=== PATIENT | male | born 1960 | race African-American/Black ===

== ENCOUNTER 2017-11-16 05:43 | Day surgery (SDC) | payer MEDICARE, OTHER ==
[2017-11-12 11:10] LABS: BASOPHILS % (AUTO) 1.5 % (0.0-2.0); EOSINOPHILS % (AUTO) 0.7 % (0.0-3.0); HEMATOCRIT 44.8 % (42.0-52.0); HEMOGLOBIN 13.9 G/DL (14.2-18.0); LYMPHOCYTES % (AUTO) 36.3 % (20.0-45.0); MEAN CORPUSCULAR VOLUME 74 FL (80-99); MONOCYTES % (AUTO) 10.1 % (1.0-10.0); NEUTROPHILS % (AUTO) 51.3 % (45.0-75.0); PLATELET COUNT 302 K/UL (150-450); RED BLOOD COUNT 6.06 M/UL (4.70-6.10); RED CELL DISTRIBUTION WIDTH 12.6 % (11.6-14.8); WHITE BLOOD COUNT 5.1 K/UL (4.8-10.8)
[2017-11-12 11:25] LABS: ANION GAP 9 mmol/L (5-15); BLOOD UREA NITROGEN 14 mg/dL (7-18); CALCIUM 9.4 MG/DL (8.5-10.1); CARBON DIOXIDE 26 MMOL/L (21-32); CHLORIDE 106 MMOL/L (98-107); CREATININE 0.9 MG/DL (0.55-1.30); POTASSIUM 3.9 MMOL/L (3.5-5.1); SODIUM 141 MMOL/L (136-145)
--- NOTE | 2017-11-13 | Pre-op HX & Phy Repo 2 SIG ---
DATE OF ADMISSION: 11/16/2017 PRESURGICAL INTERNAL MEDICINE HISTORY AND PHYSICAL DATE OF EVALUATION: 11/12/2017 REASON FOR EVALUATION: I was asked by Dr. Keyon Mosqueda to see this 57-year-old male who going for elective surgery on the right eye. This is internal Medicine History and Physical, presurgical. The patient was evaluated. Chart was reviewed. The patient was seen in the outpatient department of [facility]. PAST MEDICAL HISTORY/REVIEW OF SYSTEMS: Remarkable for history of hypertension, degenerative joint disease and back pain, history of irritable bowel syndrome. Denies history of chest pain, palpitation, or heart attack. No history of stroke or seizures. Denies history of respiratory problem. No asthma or bronchitis. No COPD. Denies history of ulcer disease or GI bleeding. No history of anemia or renal insufficiency. No thyroid problem. PAST SURGICAL HISTORY: Lumbar spine disk in 2000. MEDICATIONS: Current medications include amlodipine 10 mg daily, glucosamine 1000 mg daily, ALLERGIES: Morphine sulfate, develops rashes and lethargy. HABITS: The patient smoked for one year approximately 25 years ago. Alcohol, beer. The patient smokes marijuana. FAMILY HISTORY: Mother from complication of stroke and heart problem. Father unknown. PHYSICAL EXAMINATION: GENERAL: The patient is alert, well-developed and well-nourished male in his 50s, no acute distress. VITAL SIGNS: Pending. SKIN: Dry. No diaphoresis. No ulcer, open wounds, or rashes. LYMPHATICS: Lymph nodes not enlarged. HEENT: Head, normocephalic. Ears, clear. Eyes, full description per Dr. Keyon mosqueda. Mouth clear and moist. No dentures. NECK: Supple. No jugular vein distention. Carotids artery +2. Trachea midline. CHEST: No deformity or asymmetry. LUNGS: Clear. No rales or rhonchi. HEART: Sinus. Regular. No ectopy. No murmur. No S3 or S4. ABDOMEN: Soft, benign. Liver and spleen not enlarged. No palpable mass. No rebound. EXTREMITIES: No edema. No calf tenderness. GENITOURINARY: Normal for gender. No dysuria. No CVA tenderness. NERVOUS SYSTEM: No nystagmus. No tremor. LABORATORY AND DIAGNOSTIC DATA: Electrocardiogram, normal sinus rhythm, 74 per minute, normal ECG. Laboratory done today, white blood cells 5.1, hemoglobin 13.9, and hematocrit 44.9. Chemistry, blood sugar 101. Calcium 9.4, sodium 141, potassium 3.5, BUN 14, and creatinine 0.5. GFR more than 60 IMPRESSION: 1. Cataract, right eye. 2. Hypertension, controlled. 3. Irritable bowel syndrome. 4. Lumbar spine disk disease. PLAN: Cataract extraction, right eye with intraocular lens implant per Dr. Keyon Mosqueda. CONCLUSION: The patient has a history of hypertension and IBS, also lumbar spine degenerative joint disease and surgery on lumbar spine. The patient's laboratory in normal limits. Normal ECG. The patient is recommended to come to [facility] and not to eat or drink from midnight 11/16/2017. The patient's condition optimized for surgery. Thank you very much, Dr. Mosqueda, for privilege to participate presurgical care in this patient. Maegan Martinez M.D. DR: EDDIE JOB#: [id number] CC:
--- NOTE | 2017-11-13 10:41 | Pre-Procedure Note/Attestation ---
Pre-Procedure Note/Attestation Complete Prior to Procedure Planned Procedure: right Procedure Narrative: phaco que iol Indications for Procedure Pre-Operative Diagnosis: cataract Attestation I attest that I discussed the nature of the procedure; its benefits; risks and complications; and alternatives (and the risks and benefits of such alternatives ), prior to the procedure, with the patient (or the patient's legal healthcare sales representative). I attest that, if there was a reasonable possibility of needing a blood transfusion, the patient (or the patient's legal healthcare sales representative) was given the [facility] standardized written summary, pursuant to the Saji Cheriton Blood Safety Act ([place] Health and Safety Code # 1645, as amended). I attest that I re-evaluated the patient just prior to the surgery and that there has been no change in the patient's H&P, except as documented below: ARTIE PRYOR Nov 13, 2017 10:41
--- NOTE | 2017-11-13 10:43 | Opthalmology H&P ---
Ophthalmology H&P H&P Chief Complaint: decreased vision in right eye HPI Vision Affects Ability to: read, focus/use eyes together, manage personal affairs HPI Narrative blurry vision Exam Visual Acuity: OD: 20/50 OS: 20/25 Tension: OD: 20 OS: 20 Eye Exam: normal OU: external exam, palpebral fissure-width, marginal reflex distance, levator function, corneas, anterior chambers, findings: lens - OD: psc OS: ns, fundus exam - increased cd Assessment/Plan Diagnosis: (1) Posterior subcapsular cataract, right Treatment Plan: cataract extraction w/ lens implant Goals of Treatment: improvement of vision, enhance quality of life Attestation Attestation The risks and benefits of the surgery as well as alternative procedures were explained to the patient in detail. ARTIE PRYOR Nov 13, 2017 10:43
[~2017-11-16] VITALS: Ht 180.3 cm; Wt 80.3 kg
[2017-11-16] VITALS (7 sets, daily range): BP systolic 122–139; BP diastolic 84–91
[~2017-11-16 05:43] MED LIST: AMLODIPINE BESY10 MG ORAL; GLUCOSAMINE1000 M1 PO
[2017-11-16] MEDS ORDERED: Phenylephrine 10% Opth Soln 5ml ONE (06:06)
[2017-11-16] MEDS ORDERED: Akten 3.5% 1ml Btl ONE (06:06)
[2017-11-16] MEDS ORDERED: Tobramycin Op Soln 0.3% 5ml ONE (06:06)
[2017-11-16] MEDS ORDERED: Cyclopentolate 1% Opth Sol 2ml ONE (06:06)
[2017-11-16] MEDS ORDERED: Ketorolac Tromethamine Opth 5ml Soln ONE (06:06)
[2017-11-16] MEDS ORDERED: Tetracaine 0.5% Opth 4ml Soln ONE (06:07)
[2017-11-16] MEDS ORDERED: Tropicamide 1% Opth 15ml Soln ONE (06:07)
[2017-11-16] MEDS: Ketorolac Tromethamine Opth 5ml Soln RIGHT EYE SCH ×3 (06:14→06:42)
[2017-11-16] MEDS: Tropicamide 1% Opth 15ml Soln RIGHT EYE SCH ×3 (06:14→06:42)
[2017-11-16] MEDS: Phenylephrine 10% Opth Soln 5ml RIGHT EYE SCH ×3 (06:14→06:41)
[2017-11-16] MEDS: Cyclopentolate 1% Opth Sol 2ml RIGHT EYE SCH ×3 (06:14→06:41)
[2017-11-16] MEDS: Tobramycin Op Soln 0.3% 5ml RIGHT EYE SCH ×2 (06:15→06:42)
[2017-11-16] MEDS ORDERED: Maxitrol Opth Oint 3.5gm ONE (07:00)
[2017-11-16] MEDS ORDERED: Sterile Water 10ml Vial ONE (07:00)
[2017-11-16] MEDS ORDERED: Proparacaine 0.5% Opth Soln 15ml RIGHT EYE ONE (07:00)
[2017-11-16] MEDS ORDERED: Pred Forte 1% Opth Susp 1ml ONE (07:00)
[2017-11-16] MEDS ORDERED: BSS 500ml btl ONE (07:00)
[2017-11-16] MEDS ORDERED: Dexamethasone 4mg/ml vial ONE (07:00)
[2017-11-16] MEDS ORDERED: EPINEPHrine 1mg/1ml Amp ONE ×2 (07:00→07:03)
[2017-11-16] MEDS ORDERED: Tetracaine 0.5% Opth 4ml Soln RIGHT EYE ONE (07:00)
[2017-11-16] MEDS ORDERED: Akten 3.5% 1ml Btl RIGHT EYE ONE (07:00)
[2017-11-16] MEDS ORDERED: acetaZOLAMIDE 500mg Inj ONE (07:02)
[2017-11-16] MEDS ORDERED: Lidocaine 2% MPF 5ml Vial INJ ONE (07:03)
[2017-11-16] MEDS ORDERED: DiphenhydrAMINE 50mg/ml Inj ONE (07:03)
[2017-11-16] MEDS ORDERED: BSS 15ml BTL ONE (07:03)
[2017-11-16] MEDS ORDERED: Sodium Hyaluronate 14 mg/ml 0.85ml ONE (07:04)
[2017-11-16] MEDS ORDERED: Povidone-Iodine 5% opth solution ONE (07:04)
[2017-11-16] MEDS ORDERED: Pilocarpine 2% Opth 15ml Soln ONE (07:04)
[2017-11-16] MEDS ORDERED: Carbachol 0.01% Op Soln 1.5ml vial ONE (07:05)
[2017-11-16] MEDS ORDERED: LR 1000ml 1,000 ML IVLG SCH (07:20)
--- NOTE | 2017-11-16 07:20 | Anethesia Preoperative Eval ---
Anesthesia Pre-op PMH/ROS General Date of Evaluation: Nov 16, 2017 Anesthesiologist: Dimas ASA Score: ASA 2 Mallampati Score Class I : Soft palate, uvula, fauces, pillars visible Class II: Soft palate, uvula, fauces visible Class III: Soft palate, base of uvula visible Class IV: Only hard plate visible Mallampati Classification: Class II Surgeon: Ariella Diagnosis: Right cataract Surgical Procedure: Right cataract extraction with IOL Anesthesia History: none Family History: no anesthesia problems Allergies: Coded Allergies: MORPHINE (Verified Allergy, Severe, 11/12/17) LETHARGIC, ITCHING Medications: see eMAR Past Medical History Cardiovascular: Reports: HTN, Denies: CAD, CO, valve dz, arrhythmia, other Pulmonary: Denies: asthma, COPD, DOMENIC, other Gastrointestinal/Genitourinary: Reports: other - IBS, Denies: GERD, CRI, ESRD Neurologic/Psychiatric: Denies: dementia, CVA, depression/anxiety, TIA, other Endocrine: Denies: DM, hypothyroidism, steroids, other HEENT: Denies: cataract (L), cataract (R), glaucoma, [place]G (L), CUR[place]UNG (R), other Hematology/Immune: Denies: anemia, DVT, bleeding disorder, other Musculoskeletal/Integumentary: Reports: OA, Denies: RA, DJD, DDD, edema, other PSxH Narrative: lumbar sx Anesthesia Pre-op Phys. Exam Physician Exam Last Vital Signs Date Time Temp Pulse Resp B/P (MAP) Pulse Ox O2 Delivery O2 Flow Rate FiO2 11/16/17 06:22 98.5 70 18 122/84 97 Room Air 98.5 Constitutional: NAD Cardiovascular: RRR Respiratory: CTA Airway Exam Mallampati Score: Class II MO: full ROM: full Anesthesia Pre-op A/P Labs see chart Studies Pre-op Studies: EKG - sr Risk Assessment & Plan Assessment: ASA II Plan: MAC Status Change Before Surgery: No Pre-Antibiotics Drug: N/A INDERJIT CARL M.D. Nov 16, 2017 07:20
--- NOTE | 2017-11-16 07:21 | 48 Hour Post Anesthesia Eval ---
Post Anesthesia Evaluation Procedure: Right cataract exaction with IOL Date of Evaluation: Nov 16, 2017 Airway: patent Nausea: No Vomiting: No Pain Intensity: 0 Hydration Status: adequate Cardiopulmonary Status: at baseline Mental Status/LOC: patient returned to baseline Post-Anesthesia Complications: 0 Follow-up care needed: ready to discharge INDERJIT CARL M.D. Nov 16, 2017 07:21
--- NOTE | 2017-11-16 07:21 | Immediate Post-Op Evaluation ---
Immediate Post-Op Evalulation Immediate Post-Op Evalulation Procedure: Right cataract exaction with IOL Date of Evaluation: Nov 16, 2017 Time of Evaluation: 08:36 IV Fluids: 400 Blood Products: 0 Estimated Blood Loss: 0 Urinary Output: 0 Blood Pressure Systolic: 139 Blood Pressure Diastolic: 91 Pulse Rate: 70 Respiratory Rate: 16 O2 Sat by Pulse Oximetry: 100 Temperature (Fahrenheit): 98.7 Pain Score (1-10): 0 Nausea: No Vomiting: No Complications 0 Patient Status: awake, reacts, patent, none Hydration Status: adequate Drug: N/A INDERJIT CARL M.D. Nov 16, 2017 07:21
[2017-11-16] MEDS ORDERED: DiphenhydrAMINE 50mg/ml Inj IVP PRN (07:30)
[2017-11-16] MEDS ORDERED: fentaNYL 100 mcg/2 mL IV ONE (08:00)
[2017-11-16] MEDS ORDERED: Midazolam 2mg/2ml Inj ONE (08:00)
[2017-11-16] MEDS ORDERED: Sterile Water Irrig 1000ml IRRIG ONE (08:00)
[2017-11-16] MEDS ORDERED: LR 1000ml ONE (08:00)
[2017-11-16] MEDS ORDERED: Lidocaine 1% MPF 10mg/ml 5ml ONE (08:00)
[2017-11-16] MEDS ORDERED: NS Irrig 1000ml ONE (08:00)
--- NOTE | 2017-11-17 09:09 | Brief Operative Note ---
Immediate Post Operative Note Operative Note Chief Complaint: Blurry Vision Pre-op Diagnosis: Cataract Right Eye Procedure: Phaco With IOL Implant Right Eye Post-op Diagnosis: Pseudophakia Right Eye Post-op Diagnosis: same as pre-op Findings: consistent w/pre-op dx studies Surgeon: Artie Pryor Anesthesiologist: Kg Anesthesia: MAC Specimen: none Complications: none Condition: stable Fluids: LR Estimated Blood Loss: none Drains: none Implant(s) used?: Yes ARTIE PRYOR Nov 17, 2017 09:09
--- NOTE | 2017-11-17 09:36 | Operative Note - PDOC ---
Operative Note Operative Note Date of Operation/Procedure: Nov 16, 2017 Chief Complaint: Blurry Vision Pre-op Diagnosis: Cataract Right Eye Procedure: Phaco With IOL Implant Right Eye Post-op Diagnosis: Pseudophakia Right Eye Post-op Diagnosis: same as pre-op Operative Findings: consistent w/pre-op dx studies Surgeon: Artie Pryor Anesthesiologist: Kg Anesthesia: MAC Specimen: none Complications: none Condition: stable Fluids: LR Estimated Blood Loss: none Drains: none Implant(s) used?: Yes Indications for Procedure cataract Description of Procedure PATIENT: ATT. PHYS: ARTIE PRYOR M.D. SURGEON: ARTIE PRYOR M.D. ADMIT DATE: REPORT OF OPERATION Page 2 of 2 This patient has been complaining visually significant cataract in the affected eye with the best corrected visual acuity under moderate glare conditions worse. The patient complains of difficulties with glare in performing activities of daily living and wants to manage personal affairs with comfort and accuracy and see well enough to move with safety at home and outdoors. The risks, benefits and alternatives of the procedure were discussed with the patient in the office prior to scheduling surgery. All questions from the patient were answered after the surgical procedure was explained in detail. The risks of the procedure as explained to the patient include, but are not limited to, pain, infection, bleeding, loss of vision, retinal detachment, need for further surgery, loss of lens nucleus, double vision, etc. Alternative procedures were discussed which include, to do nothing or seek a second opinion. Informed consent for this procedure was obtained from the patient. The patient was referred to a primary care physician for a cardiopulmonary clearance prior to surgery, after proper evaluation was done patient was properly scheduled for outpatient surgery. The patient was brought to the operating room where the anesthesiologist established I.V. lines and cardiac monitoring leads. Mild intravenous sedation was administered. The patient was then prepared with a 5% solution of povidone -iodine to the conjunctival fornix and lashes, and a 5% solution of povidone- iodine to the lids and periorbital skin. The patient was then draped in the usual sterile fashion. A lid speculum was then placed in the operative eye. A keratome blade was then used to create a biplanar incision into the anterior chamber. Viscoelastics was then instilled into the anterior chamber. A capsulorrhexis was then fashioned with an utrata forceps followed by a BSS and a cannula were then used to hydrodissect and hydro delineate the lens. Paracentesis incision was made at 3 o'clock with sharp blade. The phacoemulsification unit, after being properly adjusted and tested, was then used to emulsify the nucleus then aspiration and irrigation of residual cortical material with the I and A unit. Healon was then instilled into the anterior chamber. The corneal wound was then enlarged to the size of the optic with the anuel keratome blade. The intraocular lens was then inspected for right power and size and thought to be satisfactory. Then the lens was gently placed in the capsular bag. Positioning within the capsular bag was confirmed by direct visualization. Optic centration was accomplished with a Sinskey hook. Viscoelastics was removed from the anterior chamber using the irrigation and aspiration unit. The corneal wound was then tested for leaks and none were found. The lid speculum were then removed. Sponge and needle counts were correct. An eye patch and shield were placed over the operative eye. The patient was taken to the recovery room in stable condition. There were no complications. The patient tolerated the procedure well. The patient was then transferred to the ambulatory surgery unit in stable and satisfactory condition , was given detailed written instructions and asked to follow up in the office the next day. ARTIE PRYOR M.D. ARTIE PRYOR Nov 17, 2017 09:35
--- NOTE | 2017-11-25 17:02 | Cardiology Report ---
APPROVED REPORT EKG Measurement Heart [id number] Normal sinus rhythm Normal ECG
== END 2017-11-16 10:10 | disposition home or self-care (01) ==
LOC: SUR 05:43
DX: H25.041 Posterior subcapsular polar age-related cataract, right eye (principal); I10 Essential (primary) hypertension; K58.9 Irritable bowel syndrome, unspecified; M51.36 Other intervertebral disc degeneration, lumbar region; Z88.6 Allergy status to analgesic agent; Z88.2 Allergy status to sulfonamides; F12.90 Cannabis use, unspecified, uncomplicated; M19.90 Unspecified osteoarthritis, unspecified site
CPT/HCPCS: 36415; 66984; 80048; 85025; 93005; J0171; J1100; J1200; J2250; J3010; J3370; J7120; V2632; 94003; 94150; A4216

== ENCOUNTER 2018-05-31 05:52 | Day surgery (SDC) | payer MEDICARE, OTHER ==
[2018-05-25 09:44] LABS: BASOPHILS % (AUTO) 1.4 % (0.0-2.0); HEMOGLOBIN 14.9 G/DL (14.2-18.0); MEAN CORPUSCULAR VOLUME 73 FL (80-99); MONOCYTES % (AUTO) 10.5 % (1.0-10.0); NEUTROPHILS % (AUTO) 44.1 % (45.0-75.0); PLATELET COUNT 342 K/UL (150-450); RED BLOOD COUNT 6.67 M/UL (4.70-6.10); RED CELL DISTRIBUTION WIDTH 12.5 % (11.6-14.8); WHITE BLOOD COUNT 5.6 K/UL (4.8-10.8)
[2018-05-25 09:47] LABS: ANION GAP 7 mmol/L (5-15); BLOOD UREA NITROGEN 12 mg/dL (7-18); CALCIUM 9.7 MG/DL (8.5-10.1); CARBON DIOXIDE 32 MMOL/L (21-32); CHLORIDE 103 MMOL/L (98-107); CREATININE 0.9 MG/DL (0.55-1.30); SODIUM 142 MMOL/L (136-145)
[2018-05-25 09:57] LABS: INR 0.9 (0.9-1.1)
--- NOTE | 2018-05-25 16:00 | Pre-op HX & Phy Repo 2 SIG ---
DATE OF ADMISSION: 05/31/2018 PRESURGICAL INTERNAL MEDICINE HISTORY AND PHYSICAL DATE OF EVALUATION: 05/25/2018. REASON FOR EVALUATION: I was asked by Dr. Keyon Krishnan to see this 58-year-old male, who going for elective surgery on the left eye on the May 31, 2018. The patient was evaluated. Chart was reviewed. The patient has a cataract, left eye. Please see history and physical by Ophthalmology, Dr. Keyon Krishnan. This is second visit to [facility]. The patient had a right eye cataract removal on November 16, 2017. Chart was reviewed. PAST MEDICAL HISTORY: Remarkable for hypertension, low back pain due to lumbar spine degenerative disease, irritable bowel syndrome. The patient denies history of chest pain, palpitation, or heart attack. No history of diabetes. No respiratory problem, asthma, or bronchitis. Denies history of ulcer disease, thyroid problem, or renal failure. No anemia. PAST SURGICAL HISTORY: Right eye cataract surgery. FAMILY HISTORY: Mother from complication of the stroke, she had a heart problem. Father, unknown. ALLERGIES: The patient is allergic to morphine. PRESENT MEDICATIONS: Include amlodipine and glucosamine, also Naprosyn for pain. HABITS: The patient's tobacco use for one year, 25 years ago. Alcohol, beer. Street drug, marijuana occasional. PHYSICAL EXAMINATION: GENERAL: Alert, well-developed, well-nourished male in his 50s, no acute distress. VITAL SIGNS: Blood pressure 140/89, temperature 97, pulse 70, respirations 18, and O2 saturation 99% on room air. SKIN: No ulcer. No rashes. Warm and dry. Lymph nodes not enlarged. HEENT: Head, normocephalic. Ears, clear. Eyes, full description per Dr. Keyon Krishnan. Mouth, clear and moist. No dentures. NECK: No jugular venous distention. Carotids artery +2. Trachea midline. CHEST: No deformity or asymmetry. LUNGS: Clear. No rales or rhonchi. HEART: Sinus rhythm. No ectopy. No S3 or S4. ABDOMEN: Soft. No palpable mass. No rebound. EXTREMITIES: No edema. No calf tenderness. No varicose vein. GENITOURINARY TRACT: Normal for gender. NERVOUS SYSTEM: No tremor. No nystagmus. LABORATORY AND DIAGNOSTIC DATA: ECG done today, normal sinus rhythm at 67 per minute, normal ECG. Lab work is all pending. IMPRESSION: 1. Cataract, left eye. 2. Hypertension. 3. Irritable bowel syndrome. 4. Low back pain due to lumbar spine degenerative joint disease. PLAN: Cataract extraction, left eye with intraocular lens implant per Dr. Keyon Krishnan. CONCLUSION: The patient is a 58-year-old male. Vital signs stable. The patient had EKG normal. The patient to be NPO after midnight May 31, 2018, for surgery. The patient's condition optimized for surgery. Thank you very much, Dr. Krishnan, for the privilege to participate in the presurgical care of this interesting patient. Maegan Martinez M.D. DR: SHIKHA JOB#: [id number] CC:
--- NOTE | 2018-05-26 15:59 | Pre-Procedure Note/Attestation ---
Pre-Procedure Note/Attestation Complete Prior to Procedure Planned Procedure: left Procedure Narrative: phaco with IOL Indications for Procedure Pre-Operative Diagnosis: cataract Attestation I attest that I discussed the nature of the procedure; its benefits; risks and complications; and alternatives (and the risks and benefits of such alternatives ), prior to the procedure, with the patient (or the patient's legal service representative). I attest that, if there was a reasonable possibility of needing a blood transfusion, the patient (or the patient's legal service representative) was given the [facility] standardized written summary, pursuant to the [address] Blood Safety Act ([place] Health and Safety Code # 1645, as amended). I attest that I re-evaluated the patient just prior to the surgery and that there has been no change in the patient's H&P, except as documented below: ARTIE PRYOR May 26, 2018 15:59
--- NOTE | 2018-05-26 16:01 | Opthalmology H&P ---
Ophthalmology H&P H&P Chief Complaint: decreased vision in left eye HPI Vision Affects Ability to: read, focus/use eyes together, manage personal affairs HPI Narrative blurry vision Exam Visual Acuity: OD: 20/30 OS: CF Tension: OD: 13 OS: 12 Eye Exam: normal OU: external exam, palpebral fissure-width, marginal reflex distance, levator function, corneas, anterior chambers; findings: lens - OD: IOL OS: ns, fundus exam - increased cd OU Assessment/Plan Diagnosis: (1) Nuclear age-related cataract, left eye Treatment Plan: cataract extraction w/ lens implant Goals of Treatment: improvement of vision, enhance quality of life Attestation Attestation The risks and benefits of the surgery as well as alternative procedures were explained to the patient in detail. ARTIE PRYOR May 26, 2018 16:01
--- NOTE | 2018-05-26 19:22 | Cardiology Report ---
APPROVED REPORT EKG Measurement Heart [id number] Normal sinus rhythm Normal ECG
[2018-05-31] VITALS (10 sets, daily range): BP systolic 110–137; BP diastolic 7–91
[~2018-05-31] VITALS: Ht 180.3 cm; Wt 80.7 kg
[2018-05-31] MEDS ORDERED: Proparacaine 0.5% Opth Soln 15ml LEFT EYE ONE (07:00)
[2018-05-31] MEDS ORDERED: Pred Forte 1% Opth Susp 1ml ONE (07:00)
[2018-05-31] MEDS ORDERED: Maxitrol Opth Oint 3.5gm ONE (07:00)
[2018-05-31] MEDS ORDERED: Pilocarpine 2% Opth 15ml Soln ONE (07:00)
[2018-05-31] MEDS ORDERED: Tetracaine 0.5% Opth 4ml Soln LEFT EYE ONE (07:00)
[2018-05-31] MEDS ORDERED: Akten 3.5% 1ml Btl LEFT EYE ONE (07:00)
[2018-05-31] MEDS ORDERED: Dexamethasone 4mg/ml vial ONE (07:00)
[2018-05-31] MEDS: Diclofenac Sod 0.1% Op Soln LEFT EYE SCH ×3 (07:22→07:39)
[2018-05-31] MEDS: Tropicamide 1% Opth 15ml Soln LEFT EYE SCH ×3 (07:22→07:39)
[2018-05-31] MEDS: Cyclopentolate 1% Opth Sol 2ml LEFT EYE SCH ×3 (07:22→07:39)
[2018-05-31] MEDS: Tobramycin Op Soln 0.3% 5ml LEFT EYE SCH ×3 (07:22→07:39)
[2018-05-31] MEDS: Phenylephrine 10% Opth Soln 5ml LEFT EYE SCH ×3 (07:22→07:39)
[2018-05-31] MEDS ORDERED: EPINEPHrine 1mg/1ml Amp ONE (07:36)
[2018-05-31] MEDS ORDERED: Carbachol 0.01% Op Soln 1.5ml vial ONE (07:37)
[2018-05-31] MEDS ORDERED: BSS 15ml BTL ONE (07:37)
[2018-05-31] MEDS ORDERED: Sodium Hyaluronate 14 mg/ml 0.85ml ONE (07:37)
[2018-05-31] MEDS ORDERED: BSS 500ml btl ONE (07:37)
[2018-05-31] MEDS ORDERED: Povidone-Iodine 5% opth solution ONE (07:37)
--- NOTE | 2018-05-31 08:26 | Anethesia Preoperative Eval ---
Anesthesia Pre-op PMH/ROS General Date of Evaluation: May 31, 2018 Time of Evaluation: 08:19 Anesthesiologist: Debo Kebede CRNA ASA Score: ASA 2 Mallampati Score Class I : Soft palate, uvula, fauces, pillars visible Class II: Soft palate, uvula, fauces visible Class III: Soft palate, base of uvula visible Class IV: Only hard plate visible Mallampati Classification: Class II Surgeon: Ariella Diagnosis: LEFT cataract Surgical Procedure: LEFT cataraction extraction with IOL Anesthesia History: none Social History: smoking Family History: no anesthesia problems Allergies: Coded Allergies: MORPHINE (Verified Allergy, Severe, 05/31/18) LETHARGIC, ITCHING Medications: see eMAR Past Medical History Cardiovascular: Reports: HTN; Denies: CAD, ND, valve dz, arrhythmia, other Pulmonary: Denies: asthma, COPD, DOMENIC, other Gastrointestinal/Genitourinary: Denies: GERD, CRI, ESRD, other Neurologic/Psychiatric: Denies: dementia, CVA, depression/anxiety, TIA, other Endocrine: Denies: DM, hypothyroidism, steroids, other HEENT: Reports: cataract (L) - plan for extraction today, cataract (R) - s/p extraction; Denies: glaucoma, [place] (L), RED CL[place] (R), other Hematology/Immune: Denies: anemia, DVT, bleeding disorder, other Musculoskeletal/Integumentary: Reports: other - s/p RIGHT shoulder surgery, lumbar surgery PMH Narrative: as above PSxH Narrative: RIGHT shoulder surgery, lumbar surgery, RIGHT cataract extraction Anesthesia Pre-op Phys. Exam Physician Exam Last Vital Signs Date Time Temp Pulse Resp B/P (MAP) Pulse Ox O2 Delivery O2 Flow Rate FiO2 05/31/18 07:26 Room Air 05/31/18 07:25 97.6 73 18 137/91 (106) 98 97.6 Constitutional: NAD Neurologic: CN 2-12 intact Cardiovascular: RRR Respiratory: CTA Gastrointestinal: S/NT/ND Airway Exam Mallampati Score: Class II MO: full TMD: > 3FB ROM: full Teeth: intact Dentures: no upper, no lower Anesthesia Pre-op A/P Labs see chart WNL Studies Pre-op Studies: EKG - NSR Risk Assessment & Plan Assessment: ASA 2 ok to proceed Plan: MAC Status Change Before Surgery: No Pre-Antibiotics Given Within 1 Hr of Incision: No Debo Kebede CRNA May 31, 2018 08:26
[2018-05-31] MEDS ORDERED: Midazolam 2mg/2ml Inj ONE ×2 (09:05→09:32)
[2018-05-31] MEDS ORDERED: Lidocaine 1% MPF 10mg/ml 5ml ONE ×2 (09:06→09:31)
[2018-05-31] MEDS ORDERED: Propofol 200mg/20ml IV ONE ×2 (09:06→09:31)
[2018-05-31] MEDS ORDERED: fentaNYL 100 mcg/2 mL IV ONE (09:27)
[2018-05-31] MEDS ORDERED: LR 1000ml ONE (09:30)
[2018-05-31] MEDS ORDERED: NS Irrig 1000ml ONE (09:30)
[2018-05-31] MEDS ORDERED: Sterile Water Irrig 1000ml IRRIG ONE (09:30)
--- NOTE | 2018-05-31 10:06 | Immediate Post-Op Evaluation ---
Immediate Post-Op Evalulation Immediate Post-Op Evalulation Procedure: LEFT cataract extraction with IOL Date of Evaluation: May 31, 2018 Time of Evaluation: 10:03 IV Fluids: LR 400 ML Estimated Blood Loss: 0 Blood Pressure Systolic: 119 Blood Pressure Diastolic: 75 Pulse Rate: 65 Respiratory Rate: 20 O2 Sat by Pulse Oximetry: 100 Temperature (Fahrenheit): 97.5 Pain Score (1-10): 0 Nausea: No Vomiting: No Complications none Patient Status: awake, reacts, patent Hydration Status: adequate Given Within 1 Hr of Incision: Debo Joyce CRNA May 31, 2018 10:06
--- NOTE | 2018-05-31 12:41 | 48 Hour Post Anesthesia Eval ---
Post Anesthesia Evaluation Procedure: LEFT cataract extraction with IOL Date of Evaluation: May 31, 2018 Time of Evaluation: 10:50 Blood Pressure Systolic: 137 0: 72 Pulse Rate: 66 Respiratory Rate: 15 Temperature (Fahrenheit): 97.3 O2 Sat by Pulse Oximetry: 96 Nausea: No Vomiting: No Pain Intensity: 0 Hydration Status: adequate Cardiopulmonary Status: stable Mental Status/LOC: patient returned to baseline Follow-up Care/Observations: none Post-Anesthesia Complications: none Follow-up care needed: ready to discharge Debo Kebede CRNA May 31, 2018 12:41
--- NOTE | 2018-06-01 17:03 | Brief Operative Note ---
Immediate Post Operative Note Operative Note Chief Complaint: blurry vision Pre-op Diagnosis: cataract, OS Procedure: Phaco with IOL Post-op Diagnosis: Pseudophakia Post-op Diagnosis: same as pre-op Surgeon: Ariella Anesthesiologist: Yandy Anesthesia: MAC Specimen: none Complications: none Condition: stable Fluids: LR Estimated Blood Loss: none Drains: none Implant(s) used?: Yes ARTIE PRYOR Jun 01, 2018 17:03
--- NOTE | 2018-06-02 09:08 | Operative Note - PDOC ---
Operative Note Operative Note Date of Operation/Procedure: May 31, 2018 Chief Complaint: blurry vision Pre-op Diagnosis: cataract, OS Procedure: Phaco with IOL Post-op Diagnosis: Pseudophakia Post-op Diagnosis: same as pre-op Surgeon: Ariella Anesthesiologist: Yandy Anesthesia: MAC Specimen: none Complications: none Condition: stable Fluids: LR Estimated Blood Loss: none Drains: none Implant(s) used?: Yes Indications for Procedure cataract Description of Procedure This patient has been complaining visually significant cataract in the affected eye with the best corrected visual acuity under moderate glare conditions worse. The patient complains of difficulties with glare in performing activities of daily living and wants to manage personal affairs with comfort and accuracy and see well enough to move with safety at home and outdoors. The risks, benefits and alternatives of the procedure were discussed with the patient in the office prior to scheduling surgery. All questions from the patient were answered after the surgical procedure was explained in detail. The risks of the procedure as explained to the patient include, but are not limited to, pain, infection, bleeding, loss of vision, retinal detachment, need for further surgery, loss of lens nucleus, double vision, etc. Alternative procedures were discussed which include, to do nothing or seek a second opinion. Informed consent for this procedure was obtained from the patient. The patient was referred to a primary care physician for a cardiopulmonary clearance prior to surgery, after proper evaluation was done patient was properly scheduled for outpatient surgery. The patient was brought to the operating room where the anesthesiologist established I.V. lines and cardiac monitoring leads. Mild intravenous sedation was administered. The patient was then prepared with a 5% solution of povidone -iodine to the conjunctival fornix and lashes, and a 5% solution of povidone- iodine to the lids and periorbital skin. The patient was then draped in the usual sterile fashion. A lid speculum was then placed in the operative eye. A keratome blade was then used to create a biplanar incision into the anterior chamber. Viscoelastics was then instilled into the anterior chamber. A capsulorrhexis was then fashioned with an utrata forceps A G 27 cannula was used to hydrodissect and hydro delineate the lens nucleus. Paracentesis incision was made at 3 o'clock with sharp blade. The phacoemulsification unit, after being properly adjusted and tested, was then used to emulsify the nucleus. Residual cortical material was aspirated with the irrigation and aspiration unit. Healon was then instilled into the anterior chamber. The corneal wound was then enlarged to the size of the optic with the anuel keratome blade. The intraocular lens was then inspected for right power and size and thought to be satisfactory. Then the lens was gently placed in the capsular bag. Positioning within the capsular bag was confirmed by direct visualization. Optic centration was accomplished with a Sinskey hook. Viscoelastics was removed from the anterior chamber using the irrigation and aspiration unit. The corneal wound was then tested for leaks and none were found. The lid speculum were then removed. Sponge and needle counts were correct. An eye patch and shield were placed over the operative eye. The patient was taken to the recovery room in stable condition. There were no complications. The patient tolerated the procedure well. The patient was then transferred to the ambulatory surgery unit in stable and satisfactory condition , was given detailed written instructions and asked to follow up in the office the next day. ARTIE PRYOR Jun 02, 2018 09:08
== END 2018-05-31 11:50 | disposition home or self-care (01) ==
LOC: SUR 05:52
DX: H26.9 Unspecified cataract (principal); I10 Essential (primary) hypertension; M51.36 Other intervertebral disc degeneration, lumbar region; K58.9 Irritable bowel syndrome, unspecified; Z87.891 Personal history of nicotine dependence; Z88.5 Allergy status to narcotic agent
CPT/HCPCS: 36415; 66984; 80048; 85025; 85610; 85730; 93005; J0171; J1100; J2250; J2704; J3010; J3370; V2632; 94003; 94150